=== PATIENT | female | born 1960 | race Two or more races ===

== ENCOUNTER 2025-01-08 05:26 | Emergency (ER) | payer OTHER ==
[~2025-01-08] VITALS: Ht 160 cm; Wt 72.6 kg
[2025-01-08] MEDS ORDERED: ATORVASTATIN CA10 MG (05:41)
[2025-01-08] MEDS ORDERED: LEXAPRO5 MG (05:41)
[2025-01-08] MEDS ORDERED: GENVOYA TABLET1 EACH (05:41)
[2025-01-08] MEDS ORDERED: ACETAMINOPHEN 500 MG GEL..CAP PO ONE (05:47)
[2025-01-08] MEDS ORDERED: ACETAMINOPHEN 500 MG GEL..CAP PO STA (06:49)
[2025-01-08] MEDS ORDERED: FAMOTIDINE/PF 20 MG/2 ML VIAL IV PUSH STA (06:50)
[2025-01-08] MEDS ORDERED: FAMOTIDINE/PF 20 MG/2 ML VIAL ONE (07:08)
[2025-01-08 07:30] LABS: HEMATOCRIT 39.9 % (36.0-45.00); HEMOGLOBIN 13.8 g/dL (12.0-15.00); MEAN CELL VOLUME 91.8 fL (80.00-100.00); MEAN CORPUSCULAR HEMOGLOBIN 31.8 pg (27.00-32.0); MEAN CORPUSCULAR HGB CONC 34.6 g/dl (32.0-36.0); PLATELET COUNT 132 K/uL (150-450); RED BLOOD COUNT 4.34 M/uL (4.00-6.00); RED CELL DISTRIBUTION WIDTH 13.8 % (11.5-14.5)
[2025-01-08] MEDS ORDERED: OSEL75CA PO (08:36)
[2025-01-08] MEDS ORDERED: GILTUSS COUGH-118 M1 PO (08:36)
[2025-01-08] MEDS ORDERED: ACETAMINOPHEN500 M1 PO (08:36)
[2025-01-08] MEDS ORDERED: OSELTAMIVIR PHOSPHATE 75 MG CAPSULE PO ONE ×2 (08:45→09:04)
== END 2025-01-08 09:21 | disposition home or self-care (01) ==
LOC: ER 05:29
PROVIDERS: General Practice
DX: J10.1 Influenza due to other identified influenza virus with other respiratory manifestations (principal); Z20.822 Contact with and (suspected) exposure to COVID-19; Z88.8 Allergy status to other drugs, medicaments and biological substances